=== PATIENT | male | born 1995 ===

== ENCOUNTER 2020-12-10 22:11 | Emergency (ER) | payer MEDICAID ==
[~2020-12-10] VITALS: Ht 165.1 cm; Wt 65.0 kg
[2020-12-10 22:34] VITALS: BP 112/73
== END 2020-12-10 23:42 | disposition home or self-care (01) ==
LOC: ED 22:45
DX: S39.012A Strain of muscle, fascia and tendon of lower back, initial encounter (principal); M54.2 Cervicalgia; M25.522 Pain in left elbow; M54.6 Pain in thoracic spine; V49.59XA Passenger injured in collision with other motor vehicles in traffic accident, initial encounter; Y93.89 Activity, other specified; Y92.410 Unspecified street and highway as the place of occurrence of the external cause; Y99.8 Other external cause status
CPT/HCPCS: 99281